=== PATIENT | female | born 1975 | race Asian ===

== ENCOUNTER 2016-05-16 07:49 | Emergency (ER) | payer OTHER ==
[~2016-05-16] VITALS: Ht 160 cm; Wt 54.0 kg
[~2016-05-16 07:49] MED LIST: NKM
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
[2016-05-16] MEDS ORDERED: IBUPROFEN600 MG ORAL (08:21)
[2016-05-16] MEDS ORDERED: ROBAXIN-750750 MG PO (08:21)
[2016-05-16 08:29] VITALS: BP 116/81
--- NOTE | 2016-05-16 13:54 | Diagnostic Imaging Report ---
Indication: Chest Pain Comparison: None A single view chest radiograph was obtained. Findings: Cardiomediastinal appearance is within normal limits for age. Pulmonary vascularity is appropriate. The diaphragmatic contour is smooth and costophrenic angles are sharp. No pleural effusions are identified. The bones are unremarkable. Impression: No acute findings
--- NOTE | 2016-05-19 14:03 | Cardiology Report ---
APPROVED REPORT EKG Measurement Heart [id number] Normal sinus rhythm Low voltage QRS Septal infarct, age undetermined Abnormal ECG
== END 2016-05-16 09:00 | disposition home or self-care (01) ==
LOC: EDBD 07:49 → EMR 08:38
DX: M54.2 Cervicalgia (principal); R07.9 Chest pain, unspecified; V43.52XA Car driver injured in collision with other type car in traffic accident, initial encounter; Y92.9 Unspecified place or not applicable
CPT/HCPCS: 71010; 93005; 99284

== ENCOUNTER 2016-09-08 23:28 | Emergency (ER) | payer OTHER ==
[~2016-09-08] VITALS: Ht 160 cm; Wt 56.2 kg
[~2016-09-08 23:28] MED LIST changes: +IBUPROFEN600 MG ORAL; +ROBAXIN-750750 MG PO
[2016-09-08] MEDS ORDERED: CEPHALEXIN250 M2 ORAL (23:43)
--- NOTE | 2016-09-08 23:57 | Emergency Room Report ---
History of Present Illness General Chief Complaint: Skin Rash/Abscess Source: Patient Present Illness HPI Boil in labia. Start Keflex today. She states the area of infection became extremely swollen during the course of today. She denies any fevers or chills. There's no dysuria. She shaves. To return to the [place] being [place]. Presents another difficulties. She states that her tetanus is up to date. Her last period was normal. For nausea vomiting diarrhea chest pain cough sore throat other skin rashes. She spoke with her SENIOR MORTGAGE UNDERWRITER earlier and he prescribed Keflex. Pain is 6/10, constant and burning. The pain does not radiate. She does shave. Allergies: Coded Allergies: No Known Allergies (Unverified , 05/16/16) Patient History Past Medical History: see triage record Social History Narrative was on [employer] Last Menstrual Period: 08/30/16 Now: No : 1 Para: 0 Reviewed Nursing Documentation: PMH: Agreed, PSxH: Agreed Nursing Documentation-PMH Past Medical History: No Stated History Review of Systems All Other Systems: negative except mentioned in HPI Physical Exam Vital Signs Date Time Temp Pulse Resp B/P Pulse Ox O2 Delivery O2 Flow Rate FiO2 09/08/16 23:39 98.1 72 14 131/91 98 Room Air Sp02 EP Interpretation: reviewed, normal General Appearance: well appearing, no apparent distress Head: normocephalic, atraumatic ENT: hearing grossly normal, normal voice Neck: full range of motion, supple Respiratory: no respiratory distress, speaking full sentences Genitourinary: other - shaved, abscess labia majora - not on inner aspect but outer area Musculoskeletal: digits/nails normal, gait/station normal, normal range of motion Neurologic: alert, normal gait, grossly normal Psychiatric: mood/affect normal Skin: other - see genitals Procedures Incision and Drainage Incision and Drainage : Consent: Verbal Blade Size: 11 I & D Procedure: betadine prep, sterile drapes applied, sterile dressing applied, gauze wick placed Wound Location: other - labia majora L Wound's Depth, Shape: superficial Wound Explored: contaminated - pus drained Anesthesia: Lidocaine w/ Epi Patient Tolerated: Well Complications: None Progress after drainage, irrigated with NS. Wick placed. Medical Decision Making Diagnostic Impression: Primary Impression: Abscess ER Course Patient with swelling and pain in the labia majora. Differential includes Bartholin's cyst, abscess, MRSA amongst others. The placement of was his suggestion more an abscess with MRSA. His niece incision and drainage. Patient 's tetanus is up-to-date. Patient given Motrin and topical and then a I and D was performed. Culture and g/s were sent. The patient tolerated the procedure well. She's placed on Bactrim in addition to her Keflex. She is given analgesia. She was advised to followup with her OB /PROOF CARRIER in the next 2 days. Patient stable for outpatient observation and treatment. Last Vital Signs Date Time Temp Pulse Resp B/P Pulse Ox O2 Delivery O2 Flow Rate FiO2 09/09/16 02:30 98.0 75 14 131/91 98 Room Air Status: improved Disposition: HOME, SELF-CARE Condition: Improved Scripts Tramadol Hcl* (ULTRAM*) 50 Mg Tablet 50 MG ORAL Q6H Y for For Pain, #10 TAB 0 Refills Prov: Manjit Brown M.D. 09/09/16 Ibuprofen* (MOTRIN*) 600 Mg Tablet 600 MG ORAL Q6H Y for For Pain, #20 TAB Prov: Manjit Brown M.D. 09/09/16 Trimethoprim/Sulfamethoxazole 160/800* (BACTRIM DS TABLET*) 1 Each Tablet 1 TAB ORAL Q12H, #14 TAB 0 Refills Prov: Manjit Brown M.D. 09/09/16 Manjit Brown M.D. Sep 08, 2016 23:57
[2016-09-09] MEDS ORDERED: Lidocaine HCl 2% Jelly 5ml Tube TOPIC ONE
[2016-09-09] MEDS ORDERED: Bactrim DS (160mg/800mg) tab ORAL ONE
[2016-09-09] MEDS ORDERED: LET 3ml Soln TOPIC ONE ×2
[2016-09-09] MEDS ORDERED: Lidocaine 1% 10mg/ml/Epi 0.005mg/ml 30ml vial INJ ONE
[2016-09-09] MEDS ORDERED: TRAMADOL HCL50 MG ORAL (01:30)
[2016-09-09] MEDS ORDERED: BACTRIM DS TAB1 EAC1 ORAL (01:30)
[2016-09-09] MEDS ORDERED: IBUPROFEN600 MG ORAL (01:30)
[2016-09-09 02:30] VITALS: BP 131/91
[2016-09-09] MEDS ORDERED: BACITRACIN-P28.35 GM TP ×2 (13:15→13:20)
[2016-09-09] MEDS ORDERED: HIBICLENS118 ML TP ×2 (13:19→13:20)
== END 2016-09-09 02:35 | disposition home or self-care (01) ==
LOC: EMR 23:57
DX: N76.4 Abscess of vulva (principal)
CPT/HCPCS: 10060; 87070; 87181; 99284

== ENCOUNTER 2016-09-09 12:43 | Emergency (ER) | payer OTHER ==
[~2016-09-09] VITALS: Ht 162.6 cm; Wt 54.4 kg
[~2016-09-09 12:43] MED LIST changes: +BACTRIM DS TAB1 EAC1 ORAL; +CEPHALEXIN250 M2 ORAL; +TRAMADOL HCL50 MG ORAL
--- NOTE | 2016-09-09 13:08 | Emergency Room Report ---
History of Present Illness General Chief Complaint: Wound Recheck/Suture Removal Source: Patient Present Illness HPI 40-year-old female presents emergency department complaining of continued tenderness and 9/10 in severity pain to the left sided groin area since yesterday. Patient states she believes some tissue may be hanging from the incision site. Patient is worried and wants to have her wound reevaluated. Patient states she has an appointment with her BEAM DYER OPERATOR in 2 days. Patient denies fevers or chills patient states that erythema has improved. Patient states that she has been taking Bactrim but she discontinued X. which was originally prescribed by her BEAM DYER OPERATOR. Patient states she is up-to-date with vaccinations. Denies rashes, abdominal pain, dysuria, hematuria, swollen tender lymph nodes. Denies . Allergies: Coded Allergies: No Known Allergies (Unverified , 05/16/16) Patient History Past Medical History: see triage record Past Surgical History: none Pertinent Family History: none Last Menstrual Period: 08/26/16 Now: No Reviewed Nursing Documentation: PMH: Agreed, PSxH: Agreed Nursing Documentation-PMH Past Medical History: No Stated History Review of Systems All Other Systems: negative except mentioned in HPI Physical Exam Vital Signs Date Time Temp Pulse Resp B/P Pulse Ox O2 Delivery O2 Flow Rate FiO2 09/09/16 12:51 98.1 66 14 126/83 96 Room Air Sp02 EP Interpretation: reviewed, normal General Appearance: no apparent distress, alert, GCS 15, non-toxic Head: normocephalic, atraumatic Eyes: bilateral eye PERRL, bilateral eye normal inspection ENT: hearing grossly normal, normal pharynx, no angioedema, normal voice Neck: full range of motion, supple/symm/no masses Respiratory: chest non-tender, lungs clear, normal breath sounds, speaking full sentences Cardiovascular #1: regular rate, rhythm, no edema Musculoskeletal: back normal, gait/station normal, normal range of motion, non- tender Neurologic: alert, oriented x3, responsive, motor strength/tone normal, sensory intact, speech normal Psychiatric: judgement/insight normal, memory normal, mood/affect normal Skin: normal color, no rash, warm/dry, well hydrated, wd healing/no infection noted - left labia majora with recent healing incision site and wound packing visible, no appreciable erythema. Medical Decision Making PA Attestation Dr. montanez is my supervising Physician whom patient management has been discussed with. Diagnostic Impression: Primary Impression: Change or removal of wound packing ER Course Pt. presents to the ED c/o pain and swelling of left labia majora with wound packing in place from previous I & D. Ddx considered but are not limited to cellulitis, abscess, cystic acne, necrotizing fasciitis, insect bite. Vital signs: are WNL, pt. is afebrile H&PE are most consistent with healing previously incised abscess with wound packing noted. ORDERS: none required at this time, the diagnosis is clinical ED INTERVENTIONS: -Wound packing removed. -Sterile dressing applied. d/w pt. to continue taking PO abx and to look for signs of infection . DISCHARGE: At this time pt. is stable for d/c to home. Will provide printed patient care instructions, and any necessary prescriptions. Care plan and follow up instructions have been discussed with the patient prior to discharge. Last Vital Signs Date Time Temp Pulse Resp B/P Pulse Ox O2 Delivery O2 Flow Rate FiO2 09/09/16 12:51 98.1 66 14 126/83 96 Room Air Disposition: HOME, SELF-CARE Condition: Stable Scripts Chlorhexidine Gluconate* (HIBICLENS*) 118 Ml Liquid 1 APPLIC TP DAILY, #118 ML Prov: Madelaine Cantrell 09/09/16 Bacitracin/Polymyxin B Sulfate (BACITRACIN-POLYMYXIN OINTMENT) 28.35 Gm Oint...g. 1 APPLIC TP BID, #28.3 GM Prov: Madelaine Cantrell 09/09/16 Patient Instructions: Wound Check Additional Instructions: Take all prescribed antibiotic medications as directed. Follow up with you OBGYN or Primary Care Provider in 3-5 days Return sooner to ED if new symptoms occur, or current symptoms become worse. - Please note that this Emergency Department Report was dictated using [employer] boiler technology software, occasionally this can lead to erroneous entry secondary to interpretation by the dictation equipment. Madelaine Cantrell Sep 09, 2016 13:08
[2016-09-09] MEDS ORDERED: Bacitracin Oint UD TOPIC ONE (13:15)
[2016-09-09] MEDS ORDERED: BACITRACIN-P28.35 GM TP ×2 (13:15→13:20)
[2016-09-09] MEDS ORDERED: HIBICLENS118 ML TP ×2 (13:19→13:20)
[2016-09-09 13:47] VITALS: BP 126/83
[2016-09-09 13:50] VITALS: BP 126/83
== END 2016-09-09 13:51 | disposition home or self-care (01) ==
LOC: EMR 13:20
DX: N76.4 Abscess of vulva (principal); Z48.01 Encounter for change or removal of surgical wound dressing
CPT/HCPCS: 99284